=== PATIENT | male | born 1965 | race Caucasian/White ===

== ENCOUNTER 2023-08-08 09:36 | Emergency (ER) | payer OTHER ==
[~2023-08-08] VITALS: Ht 175.3 cm; Wt 86.2 kg
[2023-08-08 09:48] VITALS: BP 140/103
[2023-08-08] MEDS ORDERED: OXYC5 PO (11:49)
== END 2023-08-08 12:11 | disposition home or self-care (01) ==
LOC: ER 09:36
DX: S68.627A Partial traumatic transphalangeal amputation of left little finger, initial encounter (principal); W31.2XXA Contact with powered woodworking and forming machines, initial encounter
CPT/HCPCS: 73140; 90714; 90715

== ENCOUNTER → 2023-09-12 | Outpatient (CLI) | payer OTHER ==
[~2023-09-12] MED LIST: OXYC5 PO
== END | disposition home or self-care (01) ==
LOC: LAB 08:00 → LAB SHORT 08:00
DX: L60.2 Onychogryphosis (principal); B35.1 Tinea unguium
CPT/HCPCS: 88305; 88312